=== PATIENT | female | born 1960 | race Caucasian/White ===

== ENCOUNTER 2018-08-28 10:04 | Inpatient (IN) | payer BC ==
--- NOTE | 2018-08-28 10:15 | EDM.PDOC ---
ED HPI GENERAL MEDICAL PROBLEM - General Stated Complaint: FELL VIA NORTH Time Seen by Provider: 08/28/18 10:04 Source of Information: Reports: Patient, EMS History Limitations: Reports: No Limitations - History of Present Illness INITIAL COMMENTS - FREE TEXT/NARRATIVE: 50-year-old female, usually healthy slipped last night and landed hard on her right hip on a hardwood floor. She was unable to get up and bear weight but with the help of her she she did get to bed. This morning she was unable to bear weight so an ambulance was called and she was brought in. She was given 100 g of fentanyl IV for pain in route. She still has significant right hip discomfort, pain with any range of motion and has obvious shortening of the right leg. She focuses her pain from the right groin to the right lateral hip. No other injury or complaints. No distal paresthesias or distal swelling. Onset: Sudden Duration: Hour(s): (About 12 hours ago) Location: Reports: Lower Extremity, Right Quality: Reports: Sharp, Stabbing Worsens with: Reports: Movement Associated Symptoms: Reports: No Other Symptoms - Related Data Allergies Allergy/AdvReac Type Severity Reaction Status Date / Time No Known Allergies Allergy Verified 08/28/18 10:16 Home Meds: Home Meds Anastrozole [Arimidex] 1 mg PO DAILY 08/28/18 [History] LORazepam 1 mg PO TID PRN 08/28/18 [History] Omeprazole 20 mg PO BID 08/28/18 [History] Sertraline [Zoloft] 100 mg PO DAILY 08/28/18 [History] Zolpidem [Ambien] 5 mg PO QPM 08/28/18 [History] Review of Systems - Review of Systems Review Of Systems: See Below Constitutional: Denies: Fever Respiratory: Denies: Shortness of Breath Cardiovascular: Denies: Chest Pain GI/Abdominal: Denies: Abdominal Pain Skin: Denies: Bruising Neurological: Denies: Paresthesia ED EXAM, GENERAL - Physical Exam Exam: See Below Exam Limited By: No Limitations General Appearance: Alert, Mild Distress (Looks very uncomfortable even while still) Respiratory/Chest: No Respiratory Distress GI/Abdominal: Soft, Non-Tender Extremities: Other (Right leg is shortened compared to the left, she has exquisite tenderness around the right proximal femur and right coronary to palpation and any passive range of motion. Excellent distal pulses of both feet) Neurological: Alert, Oriented Psychiatric: Anxious Skin Exam: Warm, Dry Course - Vital Signs Last Recorded V/S: Last Vital Signs Temp 97 F 08/28/18 12:25 Pulse 67 08/28/18 12:25 Resp 16 08/28/18 12:25 BP 130/99 H 08/28/18 12:25 Pulse Ox 94 L 08/28/18 13:00 - Orders/Labs/Meds Orders: Medication Orders Acetaminophen (Tylenol) 650 mg PO Q4H PRN PRN Reason: Pain (Mild 1-3)/fever Hydromorphone HCl (Dilaudid) 0.5 mg IVPUSH Q2H PRN PRN Reason: Pain Last Admin: 08/28/18 13:28 Dose: 0.5 mg Lactated Ringer's (Ringers, Lactated) 1,000 mls @ 125 mls/hr IV ASDIRECTED [facility] Last Admin: 08/28/18 13:32 Dose: 125 mls/hr Ibuprofen (Motrin) 600 mg PO Q6H PRN PRN Reason: Pain/Fever Lorazepam (Ativan) 0.5 mg PO Q4H PRN PRN Reason: Anxiety Non-Formulary Medication (Sertraline [Zoloft]) 100 mg PO DAILY [facility] Non-Formulary Medication (Omeprazole [Omeprazole]) 20 mg PO BID [facility] Non-Formulary Medication (Anastrozole [Arimidex]) 1 mg PO DAILY [facility] Ondansetron HCl (Zofran) 4 mg IV Q4H PRN PRN Reason: Nausea/Vomiting Last Admin: 08/28/18 13:21 Dose: 4 mg Pantoprazole Sodium (Protonix) 40 mg PO ACBREAKFAST [facility] Polyethylene Glycol (Miralax) 17 gm PO DAILY PRN PRN Reason: Constipation Potassium Chloride (Klor-Con M20) 40 meq PO ONETIME ONE Stop: 08/28/18 17:01 Senna/Docusate Sodium (Senna Plus) 1 tab PO BID [facility] Sodium Chloride (Saline Flush) 10 ml FLUSH ASDIRECTED PRN PRN Reason: Keep Vein Open Zolpidem Tartrate (Ambien) 5 mg PO QPM [facility] Labs: Laboratory Tests 08/28/18 08/28/18 08/28/18 Range/Units 10:33 10:33 10:33 WBC 5.9 (4.5-11.0) K/uL RBC 3.42 (3.30-5.50) M/uL Hgb 13.0 (12.0-15.0) g/dL Hct 38.0 (36.0-48.0) % MCV 111 H (80-98) fL MCH 38 H (27-31) pg MCHC 34 (32-36) % Plt Count 131 L (150-400) K/uL Neut % (Auto) 79 H (36-66) % Lymph % (Auto) 12 L (24-44) % [place] % (Auto) 9 H (2-6) % Eos % (Auto) 0 L (2-4) % Baso % (Auto) 1 (0-1) % PT 10.8 (9.5-12.0) sec INR 0.98 (0.80-1.20) Sodium 142 (140-148) mmol/L Potassium 3.5 L (3.6-5.2) mmol/L Chloride 105 (100-108) mmol/L Carbon Dioxide 22 (21-32) mmol/L Anion Gap 18.5 H (5.0-14.0) mmol/L BUN 10 (7-18) mg/dL Creatinine 0.6 (0.6-1.0) mg/dL Est Cr Clr Drug Dosing TNP Estimated GFR (MDRD) > 60 (>60) Glucose 117 H (74-106) mg/dL Calcium 8.9 (8.5-10.1) mg/dL Blood Type Gel Antibody Screen 08/28/18 Range/Units 10:45 WBC (4.5-11.0) K/uL RBC (3.30-5.50) M/uL Hgb (12.0-15.0) g/dL Hct (36.0-48.0) % MCV (80-98) fL MCH (27-31) pg MCHC (32-36) % Plt Count (150-400) K/uL Neut % (Auto) (36-66) % Lymph % (Auto) (24-44) % [place] % (Auto) (2-6) % Eos % (Auto) (2-4) % Baso % (Auto) (0-1) % PT (9.5-12.0) sec INR (0.80-1.20) Sodium (140-148) mmol/L Potassium (3.6-5.2) mmol/L Chloride (100-108) mmol/L Carbon Dioxide (21-32) mmol/L Anion Gap (5.0-14.0) mmol/L BUN (7-18) mg/dL Creatinine (0.6-1.0) mg/dL Est Cr Clr Drug Dosing Estimated GFR (MDRD) (>60) Glucose (74-106) mg/dL Calcium (8.5-10.1) mg/dL Blood Type O NEGATIVE Gel Antibody Screen Negative Meds: Medications Generic Name Dose Route Start Last Admin Trade Name Freq PRN Reason Stop Dose Admin Acetaminophen 650 mg 08/28/18 12:25 Tylenol PO Q4H PRN Pain (Mild 1-3)/fever Hydromorphone HCl 0.5 mg 08/28/18 12:25 08/28/18 13:28 Dilaudid IVPUSH 0.5 mg Q2H PRN Administration Pain Lactated Ringer's 1,000 mls @ 125 mls/hr 08/28/18 12:25 08/28/18 13:32 Ringers, Lactated IV 125 mls/hr ASDIRECTED ANDRES Administration Ibuprofen 600 mg 08/28/18 12:25 Motrin PO Q6H PRN Pain/Fever Lorazepam 0.5 mg 08/28/18 12:25 Ativan PO Q4H PRN Anxiety Non-Formulary Medication 100 mg 08/29/18 09:00 Sertraline [Zoloft] PO DAILY ANDRES Non-Formulary Medication 20 mg 08/28/18 21:00 Omeprazole [Omeprazole] PO BID [facility] Non-Formulary Medication 1 mg 08/29/18 09:00 Anastrozole [Arimidex] PO DAILY [facility] Ondansetron HCl 4 mg 08/28/18 12:25 08/28/18 13:21 Zofran IV 4 mg Q4H PRN Administration Nausea/Vomiting Pantoprazole Sodium 40 mg 08/28/18 13:30 Protonix PO ACBREAKFAST ANDRES Polyethylene Glycol 17 gm 08/28/18 12:25 Miralax PO DAILY PRN Constipation Potassium Chloride 40 meq 08/28/18 17:00 Klor-Con M20 PO 08/28/18 17:01 ONETIME ONE Senna/Docusate Sodium 1 tab 08/28/18 21:00 Senna Plus PO BID ANDRES Sodium Chloride 10 ml 08/28/18 12:25 Saline Flush FLUSH ASDIRECTED PRN Keep Vein Open Zolpidem Tartrate 5 mg 08/28/18 17:00 Ambien PO QPM AND[facility] Discontinued Medications Generic Name Dose Route Start Last Admin Trade Name Freq PRN Reason Stop Dose Admin Heparin Sodium (Porcine) 5,000 units 08/28/18 14:00 Heparin Sodium SUBCUT 08/28/18 14:01 Q8H ANDRES Hydromorphone HCl 0.5 mg 08/28/18 10:22 08/28/18 10:34 Dilaudid IVPUSH 08/28/18 10:23 0.5 mg ONETIME ONE Administration Hydromorphone HCl Confirm 08/28/18 10:24 Dilaudid Administered 08/28/18 10:25 Dose 0.5 mg .ROUTE .STK-MED ONE Hydromorphone HCl 0.5 mg 08/28/18 11:52 08/28/18 12:17 Dilaudid IVPUSH 08/28/18 11:53 0.5 mg ONETIME ONE Administration Potassium Chloride 40 meq 08/28/18 13:30 Klor-Con M20 PO 08/28/18 13:31 ONETIME ONE - Re-Assessments/Exams Free Text/Narrative Re-Assessment/Exam: 08/28/18 10:13 X-ray of the right hip and pelvis were obtained. 08/28/18 10:35 X-ray confirms a subcapsular proximally displaced femoral neck fracture. A second 0.5 mg of IV Dilaudid was given, and INR, CBC and BMP were obtained. 08/28/18 11:19 Labs were generally normal and noncontributory, she was not anemic. Dr. Laurent agreed to see the patient for surgical repair on Wednesday, Dr. Tucker of the hospitalist service was asked to admit the patient and prepare for surgery. Departure - Departure Time of Disposition: 13:21 Disposition: Admitted As Inpatient 66 Clinical Impression: Fracture of neck of femur, hip - Discharge Information
[2018-08-28] MEDS ORDERED: HYDROmorphone 0.5 MG/0.5 ML Syringe IVPUSH ONE ×2 (10:22→11:52)
[2018-08-28] MEDS ORDERED: HYDROmorphone 0.5 MG/0.5 ML Syringe ONE (10:24)
--- NOTE | 2018-08-28 11:58 | CRLCR ---
INDICATION: Fall. Right hip pain. TECHNIQUE: AP pelvis and cross-table lateral view of the right hip. COMPARISON: None. IMPRESSION: There is an acute fracture of the right femoral neck, subcapital region, with superior migration of the femoral shaft relative to the femoral head. Dictated by Santosh Bocanegra MD @ 08/28/2018 11:55:53 AM Dictated by: Santosh Bocanegra MD @ 08/28/2018 11:55:57 (Electronically Signed)
--- NOTE | 2018-08-28 12:23 | PCM.HP ---
H&P History of Present Illness - General Date of Service: 08/28/18 Admit Problem/Dx: Admission Diagnosis/Problem Admission Diagnosis/Problem Hip fracture requiring operative repair Source of Information: Patient, Family, Provider, RN Notes Reviewed History Limitations: Reports: No Limitations - History of Present Illness Initial Comments - Free Text/Narative: Ms. Taylor is a 58-year-old woman who is admitted through the emergency department with severe right hip pain secondary to hip fracture. Ms. Taylor was in her usual state of good health until she slept on the floor and fell last night landing on her right hip. Since then she is experienced severe pain in the hip. She was able to get into bed but was unable to get up this morning and was brought into the emergency department for further evaluation. X-ray shows evidence of a displaced fracture of the right femoral neck. Findings have been discussed with Dr. Laurent, plan is for surgical repair of the hip tomorrow. She denies any history of significant cardiac or pulmonary disease. She was found to have breast cancer last year and has completed surgery including a lumpectomy followed by radiation therapy. She is on long-term hormone suppressive therapy. To this point there has been no evidence of cancer recurrence. She denies recent symptoms of chest pain or pressure or shortness of breath and was fairly active up until the time of her fall. There is no history of adverse reaction to anesthesia and no family history of adverse reaction to anesthesia. Patient herself has not had a vein thrombosis, pulmonary emboli, or significant bleeding abnormalities. There is a family history of thrombosis and protein C deficiency. Patient is heterozygote for protein C. - Related Data Allergies/Adverse Reactions: Allergies Allergy/AdvReac Type Severity Reaction Status Date / Time No Known Allergies Allergy Verified 08/28/18 10:16 Home Medications: Home Meds Anastrozole [Arimidex] 08/28/18 [History] LORazepam 08/28/18 [History] Omeprazole 08/28/18 [History] Sertraline [Zoloft] 08/28/18 [History] Zolpidem [Ambien] 08/28/18 [History] Past Medical History Oncologic (Cancer) History: Reports: Breast - Past Surgical History Female Surgical History: Reports: Endometrial Ablation Oncologic Surgical History: Reports: Lumpectomy Social & Family History - Tobacco Use Smoking Status *Q: Never Smoker H&P Review of Systems - Review of Systems: Review Of Systems: See Below General: Reports: No Symptoms HEENT: Reports: No Symptoms Pulmonary: Reports: No Symptoms Cardiovascular: Reports: No Symptoms Gastrointestinal: Reports: Diarrhea (History of irritable bowel syndrome). Denies: Abdominal Pain, Black Stool, Bloody Stool, Constipation, Decreased Appetite, Difficulty Swallowing, Distension, Nausea, Vomiting Musculoskeletal: Reports: Joint Pain (Right hip) Skin: Reports: No Symptoms Psychiatric: Reports: Depression, Anxiety. Denies: Confusion, Agitation Neurological: Reports: No Symptoms Hematologic/Lymphatic: Reports: Other (No personal history of DVT or pulmonary emboli, family history of protein C deficiency). Denies: Anemia, Easy Bleeding , Easy Bruising Immunologic: Reports: No Symptoms Exam - Exam Exam: See Below - Vital Signs Vital Signs: Last Vital Signs Temp 95.5 F 08/28/18 10:31 Pulse 79 08/28/18 10:31 Resp 15 08/28/18 10:31 BP 142/94 H 08/28/18 10:31 Pulse Ox 96 08/28/18 10:31 Weight: 140 lb - Exam Quality Assessment: DVT Prophylaxis General: Alert, Oriented, Cooperative, Moderate Distress HEENT: Conjunctiva Clear, Hearing Intact, Mucosa Moist & [place], Normal Nasal Septum, Posterior Pharynx Clear, Pupils Equal Neck: Supple, Trachea Midline, +2 Carotid Pulse wo Bruit Lungs: Clear to Auscultation Cardiovascular: Regular Rate, Regular Rhythm, Normal S1, Normal S2. No: Systolic Murmur, Diastolic Murmur GI/Abdominal Exam: Soft, Non-Tender, No Organomegaly, No Distention Extremities: No Pedal Edema, Other (Right hip pain) Skin: Warm, Dry, Intact Neurological: Cranial Nerves Intact, Strength Equal Bilateral, Normal Speech, Normal Tone, Sensation Intact. No: Focal Deficit Neuro Extensive - Mental Status: Alert, Oriented x3, Normal Mood/Affect, Normal Cognition, Memory Intact - Patient Data Lab Results Last 24 hrs: Laboratory Results - last 24 hr 08/28/18 08/28/18 08/28/18 Range/Units 10:33 10:33 10:33 WBC 5.9 (4.5-11.0) K/uL RBC 3.42 (3.30-5.50) M/uL Hgb 13.0 (12.0-15.0) g/dL Hct 38.0 (36.0-48.0) % MCV 111 H (80-98) fL MCH 38 H (27-31) pg MCHC 34 (32-36) % Plt Count 131 L (150-400) K/uL Neut % (Auto) 79 H (36-66) % Lymph % (Auto) 12 L (24-44) % [place] % (Auto) 9 H (2-6) % Eos % (Auto) 0 L (2-4) % Baso % (Auto) 1 (0-1) % PT 10.8 (9.5-12.0) sec INR 0.98 (0.80-1.20) Sodium 142 (140-148) mmol/L Potassium 3.5 L (3.6-5.2) mmol/L Chloride 105 (100-108) mmol/L Carbon Dioxide 22 (21-32) mmol/L Anion Gap 18.5 H (5.0-14.0) mmol/L BUN 10 (7-18) mg/dL Creatinine 0.6 (0.6-1.0) mg/dL Est Cr Clr Drug Dosing TNP Estimated GFR (MDRD) > 60 (>60) Glucose 117 H (74-106) mg/dL Calcium 8.9 (8.5-10.1) mg/dL Result Diagrams: 08/28/18 10:33 08/28/18 10:33 *Q Meaningful Use (ADM) - VTE Risk Assess *Q Each Risk Factor Represents 1 Point: Age 41 - 59 years Total Score 1 Point Risk Factors: 1 Each Risk Factor Represents 2 Points: Malignancy (present or previous) Total Score 2 Point Risk Factors: 2 Each Risk Factor Represents 3 Points: Family history of thrombosis, Other congenital or acquired thrombophilia Total Score 3 Point Risk Factors: 6 Each Risk Factor Represents 5 Points: Hip, Pelvis or Leg Fracture, Less than 1 month Total Score 5 Point Risk Factors: 5 Venous Thromboembolism Risk Factor Score *Q: 14 Problem List Initiated/Reviewed/Updated: Yes Orders Last 24hrs: Active Orders 24 hr Category Date Time Status Patient Status Manage Transfer [TRANSFER] Routine ADT 08/28/18 11:09 Active Insert Gupta Catheter [Insert Urinary Catheter] [OM.PC] Care 08/28/18 11:30 Ordered Q24H Urinary Catheter Assessment [RC] ASDIRECTED Care 08/28/18 11:17 Active Resuscitation Status Routine Resus Stat 08/28/18 11:12 Ordered Assessment/Plan Comment:: ASSESSMENT AND PLAN RIGHT HIP FRACTURE-she fell at home last night and is experienced severe right hip pain since then. X-ray obtained in the emergency department shows evidence of a right femoral neck fracture. History of breast cancer, no current evidence of active disease. She is otherwise healthy with no significant cardiac or pulmonary disease, cleared for surgery with anesthesia. She has a known diagnosis of protein C deficiency, no previous history of DVT or pulmonary emboli -Orthopedic consult Dr. Laurent -IV fluids for hydration -Pain and nausea medication as needed -Nothing by mouth after midnight -Type and screen PROTEIN C DEFICIENCY-no personal history of DVT or pulmonary emboli. There is a family history of deep vein thrombosis and PEs, family history of protein C deficiency. Patient has been tested and found to have protein C deficiency. With protein C deficiency and her hip fracture she is at high risk for deep vein thrombosis. -Sequential compression devices -Subcutaneous heparin today, stop tonight pending surgery tomorrow -Aggressive postoperative DVT prophylaxis BREAST CARCINOMA-status post lumpectomy and radiation therapy, currently no evidence of active disease -Continue outpatient therapy HYPOKALEMIA -Oral potassium replacement -Reassess potassium level in a.m. DEPRESSION/ANXIETY -Continue outpatient medical management -Lorazepam as needed for anxiety MAINTENANCE ISSUES -DVT prophylaxis; as above -GI prophylaxis; continue outpatient PPI therapy -Gupta catheter; placed for pre-, post operative management -Nutrition; regular diet, nothing by mouth after midnight -Nicotine dependence; not required CODE STATUS-FULL CODE ADMISSION STATUS-patient will be admitted to inpatient status, expect at least a 2 night hospital stay for evaluation and management of problems as outlined above. At the time of this admission I do not reasonably expected evaluation and management of this problem will require more than a 96 hour hospital stay. DISPOSITION-anticipate discharge to home after the hospital stay. PRIMARY CARE PROVIDER-patient lives in [place] and receives her primary care there
[2018-08-28] MEDS ORDERED: Polyethylene Glycol 3350 Powder 17 GM Packet PO PRN (12:25)
[2018-08-28] MEDS ORDERED: Sodium Chloride 0.9% 10 ML Syringe FLUSH PRN (12:25)
[2018-08-28] MEDS: Ondansetron 4 MG/2 ML SDV IV PRN ×2 (13:21→18:25)
[2018-08-28] MEDS: HYDROmorphone 0.5 MG/0.5 ML Syringe IVPUSH PRN ×5 (13:28→22:57)
[2018-08-28] MEDS ORDERED: Pantoprazole 40 MG Tab.CR PO SCH (13:30)
[2018-08-28] MEDS ORDERED: Potassium Chloride 20 MEQ Tab.ER PO ONE ×2 (13:30→17:00)
[2018-08-28] MEDS: Lactated Ringers 1,000 ML IV SCH ×2 (13:32→21:57)
[2018-08-28] MEDS ORDERED: Heparin Sodium 5,000 Units/ML Vial SUBCUT SCH (14:00)
[2018-08-28] MEDS: OMEPRAZOLE 20MG CAP (PTOM) PO SCH (18:42)
[2018-08-28] MEDS: Ibuprofen 600 MG Tab PO PRN (19:24)
[2018-08-28] MEDS: Zolpidem 5 MG Tab PO SCH (20:48)
[2018-08-28] MEDS ORDERED: Non-Formulary Medication 1 Each (Omeprazole [Omeprazole] 20 MG) PO SCH (21:00)
[2018-08-28] MEDS: Acetaminophen 325 MG Tab PO PRN (22:58)
[2018-08-29] MEDS: Ibuprofen 600 MG Tab PO PRN ×2 (02:01→22:53)
[2018-08-29] MEDS: HYDROmorphone 1 MG/ML Syringe IVPUSH PRN ×6 (02:01→22:53)
[2018-08-29] MEDS: LORazepam 0.5 MG Tab PO PRN (02:55)
[2018-08-29] MEDS: Lactated Ringers 1,000 ML IV SCH ×2 (06:04→16:00)
[2018-08-29] MEDS ORDERED: ceFAZolin 2 GM in Premix Bag 1 BAG IV ONE (08:15)
[2018-08-29] MEDS ORDERED: Povidone-Iodine 10% Soln 118.25 ML Bottle ONE (08:22)
[2018-08-29] MEDS ORDERED: Midazolam 1 MG/ML 2 ML SDV ONE (08:38)
[2018-08-29] MEDS ORDERED: fentaNYL 100 MCG/2 ML SDV ONE (08:38)
[2018-08-29] MEDS ORDERED: Propofol 200 MG/20 ML SDV ONE (08:39)
[2018-08-29] MEDS ORDERED: ANASTROZOLE 1 MG PO SCH (09:00)
[2018-08-29] MEDS ORDERED: Non-Formulary Medication 1 Each (Sertraline [Zoloft] 100 MG) PO SCH (09:00)
[2018-08-29] MEDS ORDERED: HYDROmorphone 1 MG/ML Syringe IVPUSH ONE (09:12)
[2018-08-29] MEDS ORDERED: Lactated Ringers 1,000 ML ONE (11:59)
[2018-08-29] MEDS ORDERED: ePHEDrine 50 MG/ML SDV ONE (12:03)
[2018-08-29] MEDS: OMEPRAZOLE 20MG CAP (PTOM) PO SCH ×2 (13:20→18:54)
[2018-08-29] MEDS: Sertraline 50 MG Tab PO SCH (14:11)
[2018-08-29] MEDS: ANASTROZOLE 1 MG PO SCH (14:11)
--- NOTE | 2018-08-29 14:34 | PCM.PN ---
- General Info Date of Service: 08/29/18 Subjective Update: There were no acute events overnight. Patient had an uneventful right hip arthroplasty today. No pain in the right hip at this time. No numbness or tingling in the right leg. She is able to wiggle her toes. She feels a little short of breath at this time and is on supplemental oxygen. Vital signs are stable. Functional Status: Reports: Pain Controlled - Review of Systems General: Denies: Fever - Patient Data Vitals - Most Recent: Last Vital Signs Temp 35.0 C L 08/29/18 14:02 Pulse 98 08/29/18 14:13 Resp 16 08/29/18 14:13 BP 90/72 08/29/18 14:13 Pulse Ox 84 L 08/29/18 14:13 Weight - Most Recent: 63.503 kg I&O - Last 24 Hours: Intake & Output 08/28/18 08/29/18 08/29/18 22:59 06:59 14:59 Intake Total 597 1952 50 Output Total 340 400 175 Balance 257 1552 -125 Lab Results Last 24 Hours: Laboratory Results - last 24 hr 08/29/18 08/29/18 Range/Units 06:02 06:02 WBC 4.5 (4.5-11.0) K/uL RBC 2.98 L (3.30-5.50) M/uL Hgb 11.4 L (12.0-15.0) g/dL Hct 34.6 L (36.0-48.0) % MCV 116 H (80-98) fL MCH 38 H (27-31) pg MCHC 33 (32-36) % Plt Count 106 L (150-400) K/uL Neut % (Auto) 65 (36-66) % Lymph % (Auto) 18 L (24-44) % [place] % (Auto) 16 H (2-6) % Eos % (Auto) 0 L (2-4) % Baso % (Auto) 0 (0-1) % Sodium 140 (140-148) mmol/L Potassium 4.8 (3.6-5.2) mmol/L Chloride 105 (100-108) mmol/L Carbon Dioxide 28 (21-32) mmol/L Anion Gap 6.6 (5.0-14.0) mmol/L BUN 11 (7-18) mg/dL Creatinine 0.5 L (0.6-1.0) mg/dL Est Cr Clr Drug Dosing 119.26 mL/min Estimated GFR (MDRD) > 60 (>60) Glucose 86 (74-106) mg/dL Calcium 8.8 (8.5-10.1) mg/dL Med Orders - Current: Current Medications Acetaminophen (Tylenol) 650 mg PO Q4H PRN PRN Reason: Pain (Mild 1-3)/fever Last Admin: 08/28/18 22:58 Dose: 650 mg Diphenhydramine HCl (Benadryl) 25 mg PO Q4H PRN PRN Reason: Itching Hydromorphone HCl (Dilaudid) 1 mg IVPUSH Q2H PRN PRN Reason: Pain Last Admin: 08/29/18 10:26 Dose: 1 mg Lactated Ringer's (Ringers, Lactated) 1,000 mls @ 125 mls/hr IV ASDIRECTED [facility] Last Admin: 08/29/18 06:04 Dose: 125 mls/hr Cefazolin Sodium/Dextrose 1 gm (/ Premix) 50 mls @ 100 mls/hr IV Q8H [facility] Stop: 08/30/18 08:29 Ibuprofen (Motrin) 600 mg PO Q6H PRN PRN Reason: Pain/Fever Last Admin: 08/29/18 02:01 Dose: 600 mg Lorazepam (Ativan) 0.5 mg PO Q4H PRN PRN Reason: Anxiety Last Admin: 08/29/18 02:55 Dose: 0.5 mg Ondansetron HCl (Zofran) 4 mg IV Q4H PRN PRN Reason: Nausea/Vomiting Last Admin: 08/28/18 18:25 Dose: 4 mg Oxycodone/Acetaminophen (Percocet 325-5 Mg) 0 tab PO Q4H PRN PRN Reason: Pain (severe 7-10) Omeprazole 20mg Cap ((Ptom)) 0 each PO BIDAC [facility] Last Admin: 08/29/18 13:20 Dose: Not Given Anastrolzole 1mg Tab ((Ptom)) 1 each PO DAILY [facility] Last Admin: 08/29/18 14:11 Dose: 1 each Polyethylene Glycol (Miralax) 17 gm PO DAILY PRN PRN Reason: Constipation Senna/Docusate Sodium (Senna Plus) 1 tab PO BID [facility] Last Admin: 08/29/18 13:20 Dose: Not Given Sertraline HCl (Zoloft) 100 mg PO DAILY [facility] Last Admin: 08/29/18 14:11 Dose: 100 mg Sodium Chloride (Saline Flush) 10 ml FLUSH ASDIRECTED PRN PRN Reason: Keep Vein Open Zolpidem Tartrate (Ambien) 5 mg PO BEDTIME [facility] Last Admin: 08/28/18 20:48 Dose: 5 mg Discontinued Medications Bandage/Support Products ( Nasal Wildlife Refuge Manager) 1 applic NASBOTH ONETIME ONE Stop: 08/29/18 14:21 Ephedrine Sulfate (Ephedrine Sulfate) Confirm Administered Dose 50 mg .ROUTE .STK-MED ONE Stop: 08/29/18 12:04 Fentanyl (Sublimaze) Confirm Administered Dose 100 mcg .ROUTE .STK-MED ONE Stop: 08/29/18 08:39 Heparin Sodium (Porcine) (Heparin Sodium) 5,000 units SUBCUT Q8H [facility] Stop: 08/28/18 14:01 Last Admin: 08/28/18 18:41 Dose: 5,000 units Hydromorphone HCl (Dilaudid) 0.5 mg IVPUSH ONETIME ONE Stop: 08/28/18 10:23 Last Admin: 08/28/18 10:34 Dose: 0.5 mg Hydromorphone HCl (Dilaudid) Confirm Administered Dose 0.5 mg .ROUTE .STK-MED ONE Stop: 08/28/18 10:25 Last Admin: 08/28/18 14:47 Dose: Not Given Hydromorphone HCl (Dilaudid) 0.5 mg IVPUSH ONETIME ONE Stop: 08/28/18 11:53 Last Admin: 08/28/18 12:17 Dose: 0.5 mg Hydromorphone HCl (Dilaudid) 0.5 mg IVPUSH Q2H PRN PRN Reason: Pain Last Admin: 08/28/18 22:57 Dose: 0.5 mg Hydromorphone HCl (Dilaudid) 1 mg IVPUSH ONETIME ONE Stop: 08/29/18 09:13 Last Admin: 08/29/18 09:21 Dose: 1 mg Cefazolin Sodium/Dextrose 2 gm (/ Premix) 50 mls @ 100 mls/hr IV ONETIME ONE Stop: 08/29/18 08:44 Last Admin: 08/29/18 09:09 Dose: 100 mls/hr Lactated Ringer's (Ringers, Lactated) Confirm Administered Dose 1,000 mls @ as directed .ROUTE .STK-MED ONE Stop: 08/29/18 12:00 Midazolam HCl (Versed 1 Mg/Ml) Confirm Administered Dose 2 mg .ROUTE .STK-MED ONE Stop: 08/29/18 08:39 Pantoprazole Sodium (Protonix) 40 mg PO ACBREAKFAST [facility] Last Admin: 08/28/18 15:55 Dose: Not Given Potassium Chloride (Klor-Con M20) 40 meq PO ONETIME ONE Stop: 08/28/18 13:31 Last Admin: 08/28/18 15:51 Dose: 40 meq Potassium Chloride (Klor-Con M20) 40 meq PO ONETIME ONE Stop: 08/28/18 17:01 Last Admin: 08/28/18 19:16 Dose: 40 meq Povidone Iodine (Betadine 10% Soln) Confirm Administered Dose 1 ml .ROUTE .STK- MED ONE Stop: 08/29/18 08:23 Propofol (Diprivan 20 Ml) Confirm Administered Dose 200 mg .ROUTE .STK-MED ONE Stop: 08/29/18 08:40 - Exam Quality Assessment: Supplemental Oxygen General: Alert, Oriented, Cooperative, No Acute Distress Lungs: Clear to Auscultation, Normal Respiratory Effort Cardiovascular: Regular Rate, Regular Rhythm GI/Abdominal Exam: Soft, No Distention Extremities: No Pedal Edema. No: Increased Warmth Skin: Warm, Dry Wound/Incisions: Dressing Dry and Intact Psy/Mental Status: Alert, Normal Affect - Problem List Review Problem List Initiated/Reviewed/Updated: Yes - My Orders Last 24 Hours: My Active Orders 08/29/18 14:32 diphenhydrAMINE [Benadryl] 25 mg PO Q4H PRN 08/30/18 05:00 CBC W/O DIFF,HEMOGRAM [HEME] Timed (1) - Plan Plan:: ASSESSMENT AND PLAN RIGHT HIP FRACTURE - secondary to trauma, status post right hip arthroplasty on 08/29. Pain well-controlled at this time. -Orthopedic consult Dr. Laurent -IV fluids for hydration -Pain and nausea medication as needed -Orthopedic follow-up as indicated -Physical therapy PROTEIN C DEFICIENCY - no personal history of DVT or pulmonary emboli. There is a family history of deep vein thrombosis and PEs, family history of protein C deficiency. Patient has been tested and found to have protein C deficiency. With protein C deficiency and her hip fracture she is at high risk for deep vein thrombosis. -Sequential compression devices -Mechanical today -Aggressive postoperative DVT prophylaxis starting tomorrow BREAST CARCINOMA - status post lumpectomy and radiation therapy, currently no evidence of active disease -Continue outpatient therapy HYPOKALEMIA - improved with replacement. -potassium level in a.m. DEPRESSION/ANXIETY -Continue outpatient medical management -Lorazepam as needed for anxiety MAINTENANCE ISSUES -DVT prophylaxis; as above -GI prophylaxis; continue outpatient PPI therapy -Gupta catheter; placed for pre-, post operative management -Nutrition; regular diet DISPOSITION - anticipate discharge to home after the hospital stay. Rob Atkinson M.D.
[2018-08-29] MEDS: Nozin Nasal Sanitizer NASBOTH ONE ×2 (14:37→16:02)
[2018-08-29] MEDS: Acetaminophen 325 MG Tab PO PRN (14:44)
[2018-08-29] MEDS: diphenhydrAMINE 25 MG Cap PO PRN ×2 (14:44→21:37)
--- NOTE | 2018-08-29 14:58 | CR ---
Hip Min 1V Rt CLINICAL HISTORY: Postop FINDINGS: Patient is status post right hip hemiarthroplasty. Components appear well seated. IMPRESSION: Status post recent right hip hemiarthroplasty
[2018-08-29] MEDS: ceFAZolin 1 GM in Premix Bag 1 BAG IV SCH (16:06)
[2018-08-29] MEDS ORDERED: Sodium Chloride 0.9% 500 ML IV SCH (16:15)
[2018-08-29] MEDS: Acetaminophen/oxyCODONE 325-5 MG Tab PO PRN ×2 (16:21→21:28)
[2018-08-29] MEDS ORDERED: Sodium Chloride 0.9% 500 ML IV ONE (20:48)
[2018-08-29] MEDS: Zolpidem 5 MG Tab PO SCH (21:28)
[2018-08-29] MEDS: Nozin Nasal Sanitizer NASBOTH SCH (22:46)
[2018-08-30] MEDS: ceFAZolin 1 GM in Premix Bag 1 BAG IV SCH ×2 (00:47→07:24)
[2018-08-30] MEDS: Acetaminophen/oxyCODONE 325-5 MG Tab PO PRN ×5 (02:10→20:55)
[2018-08-30] MEDS: Lactated Ringers 1,000 ML IV SCH ×2 (02:11→10:38)
[2018-08-30] MEDS: LORazepam 0.5 MG Tab PO PRN (03:48)
[2018-08-30] MEDS: OMEPRAZOLE 20MG CAP (PTOM) PO SCH ×2 (07:26→16:13)
[2018-08-30] MEDS: Sertraline 50 MG Tab PO SCH (09:12)
[2018-08-30] MEDS: ANASTROZOLE 1 MG PO SCH (09:12)
[2018-08-30] MEDS: Nozin Nasal Sanitizer NASBOTH SCH ×2 (09:12→21:38)
[2018-08-30] MEDS: Ibuprofen 600 MG Tab PO PRN ×2 (10:47→19:09)
--- NOTE | 2018-08-30 11:25 | PCM.CONS ---
H&P History of Present Illness - General Date of Service: 08/29/18 Admit Problem/Dx: Admission Diagnosis/Problem Admission Diagnosis/Problem Hip fracture requiring operative repair Source of Information: Patient, Provider History Limitations: Reports: No Limitations - History of Present Illness Initial Comments - Free Text/Narative: 58 year old female with history of a fall at home. Was unable to weight bear on her right leg after the fall but was able to get back into be with the help of her . Eventually presented to the ED and was found to have a displaced femoral neck fracture of the right hip. She was admitted for treatment of the fracture. Evaluated by Hospitalist and cleared for surgery. Does have a history of Breast CA and Protein C Deficiency. Onset of Symptoms: Reports: Sudden Location: Reports: Lower Extremity, Right Quality: Reports: Sharp, Stabbing Severity: Severe Improves with: Reports: Rest Worsens with: Reports: Movement Associated Symptoms: Reports: No Other Symptoms Right Hip Pain Score (Numeric/FACES): 8 - Related Data Allergies/Adverse Reactions: Allergies Allergy/AdvReac Type Severity Reaction Status Date / Time No Known Allergies Allergy Verified 08/28/18 10:16 Home Medications: Home Meds Anastrozole [Arimidex] 1 mg PO DAILY 08/28/18 [History] LORazepam 1 mg PO TID PRN 08/28/18 [History] Omeprazole 20 mg PO BID 08/28/18 [History] Sertraline [Zoloft] 100 mg PO DAILY 08/28/18 [History] Zolpidem [Ambien] 5 mg PO QPM 08/28/18 [History] Past Medical History Cardiovascular History: Reports: Aneurysm Other Cardiovascular History: Ascending aortic aneurysm, small enough they are monitoring it BLENDER History: Reports: Endometrial Ablation Musculoskeletal History: Reports: Osteoporosis Psychiatric History: Reports: Anxiety, Depression Other Endocrine/Metabolic History: Protein C deficiency Other Hematologic History: protein c deficiency Oncologic (Cancer) History: Reports: Breast - Past Surgical History Female Surgical History: Reports: Endometrial Ablation Oncologic Surgical History: Reports: Lumpectomy Social & Family History - Family History Family Medical History: Noncontributory - Tobacco Use Smoking Status *Q: Never Smoker Used Tobacco, but Quit: No Second Hand Smoke Exposure: No - Caffeine Use Caffeine Use: Reports: None - Alcohol Use Days Per Week of Alcohol Use: 5 Number of Drinks Per Day: 2 Total Drinks Per Week: 10 Date of Last Drink: 08/27/18 Time of Last Drink: 19:00 - Recreational Drug Use Recreational Drug Use: No H&P Review of Systems - Review of Systems: Review Of Systems: ROS reveals no pertinent complaints other than HPI. Exam - Exam Exam: See Below - Vital Signs Vital Signs: Last Vital Signs Temp 37.1 C 08/30/18 10:40 Pulse 76 08/30/18 10:40 Resp 16 08/30/18 10:40 BP 102/72 08/30/18 10:40 Pulse Ox 99 08/30/18 10:40 Weight: 63.503 kg - Exam General: Alert, Oriented, 4 HEENT: PERRLA, Hearing Intact, Mucosa Moist & [place], Nares Patent, Normal Nasal Septum, Posterior Pharynx Clear, Conjunctiva Clear, EOMI, EACs Clear, TMs Clear Neck: Supple, Trachea Midline, 2 Extremities: Leg Pain, Other (Pain with log roll and motion of right leg, right leg shorter than left) Peripheral Pulses: 2+: Dorsalis Pedis (L), Dorsalis Pedis (R) Skin: Warm, Dry, Intact Neurological: Cranial Nerves Intact, Reflexes Equal Bilateral Neuro Extensive - Mental Status: Alert, Oriented x3, Normal Mood/Affect, Normal Cognition Psychiatric: Alert, Normal Affect, Normal Mood - Patient Data Lab Results Last 24 hrs: Laboratory Results - last 24 hr 08/30/18 Range/Units 05:00 WBC 3.7 L (4.5-11.0) K/uL RBC 2.47 L (3.30-5.50) M/uL Hgb 9.1 L D (12.0-15.0) g/dL Hct 28.9 L (36.0-48.0) % MCV 117 H (80-98) fL MCH 37 H (27-31) pg MCHC 32 (32-36) % Plt Count 98 L (150-400) K/uL Result Diagrams: 08/31/18 05:26 08/31/18 05:26 Consult PN Assessment/Plan (1) Fracture of neck of femur, hip SNOMED Code(s): 1568278 Code(s): S72.009A - FRACTURE OF UNSP PART OF NECK OF UNSP FEMUR, INIT Current Visit: Yes Problem List Initiated/Reviewed/Updated: Yes My Orders Last 24 Hours: My Active Orders 08/29/18 13:01 Consult to Physical Therapy [PT Evaluation and Treatment] [CONS] Routine Weight bearing status [OM.PC] Routine 08/29/18 13:02 Consult to Occupational Therapy [OT Evaluation and Treatment] [CONS] Routine 08/29/18 13:03 Acetaminophen/oxyCODONE [Percocet 325-5 MG] See Dose Instructions PO Q4H PRN 08/29/18 13:05 Ambulate [RC] PER UNIT ROUTINE 08/29/18 21:00 Nozin [ Nasal Rubber Boots And Shoes Repairer] 1 applic NASBOTH BID 08/29/18 Dinner Regular Diet [DIET] Plan: X-rays of hip are reviewed. Imp: Displaced subcapital fracture right hip Recommend bipolar hemiarthroplasty of right hip. Discussed pros and cons and hemiarthroplasty vs total hip with pt and . Risks,benefits and potential complications discussed. Plan hemiarthroplasty, patient is in agreement with the plan.
--- NOTE | 2018-08-30 12:02 | PCM.PN ---
- General Info Date of Service: 08/30/18 Subjective Update: Overnight the patient had difficulty with low blood pressures on 2 occasions. Both of these episodes responded to fluid challenges. Pain is well-controlled today. She's been able to ambulate in the barry twice. She has not had any fevers. She was a little confused this morning after receiving Ambien and Benadryl last night. Confusion has resolved. No complaints of nausea. Shortness of breath is at baseline. Functional Status: Reports: Pain Controlled, Tolerating Diet, Ambulating - Review of Systems General: Denies: Fever Neurological: Reports: Confusion - Patient Data Vitals - Most Recent: Last Vital Signs Temp 37.1 C 08/30/18 10:40 Pulse 76 08/30/18 10:40 Resp 16 08/30/18 10:40 BP 102/72 08/30/18 10:40 Pulse Ox 99 08/30/18 10:40 Weight - Most Recent: 63.503 kg I&O - Last 24 Hours: Intake & Output 08/29/18 08/30/18 08/30/18 22:59 06:59 14:59 Intake Total 1989 191 170 Output Total 136 100 150 Balance 1854 1817 20 Lab Results Last 24 Hours: Laboratory Results - last 24 hr 08/30/18 Range/Units 05:00 WBC 3.7 L (4.5-11.0) K/uL RBC 2.47 L (3.30-5.50) M/uL Hgb 9.1 L D (12.0-15.0) g/dL Hct 28.9 L (36.0-48.0) % MCV 117 H (80-98) fL MCH 37 H (27-31) pg MCHC 32 (32-36) % Plt Count 98 L (150-400) K/uL Med Orders - Current: Current Medications Acetaminophen (Tylenol) 650 mg PO Q4H PRN PRN Reason: Pain (Mild 1-3)/fever Last Admin: 08/29/18 14:44 Dose: 650 mg Bandage/Support Products ( Nasal Manager Critical Care) 1 applic NASBOTH BID [facility] Stop: 09/05/18 21:01 Last Admin: 08/30/18 09:12 Dose: 1 applic Diphenhydramine HCl (Benadryl) 25 mg PO Q4H PRN PRN Reason: Itching Last Admin: 08/29/18 21:37 Dose: 25 mg Hydromorphone HCl (Dilaudid) 1 mg IVPUSH Q2H PRN PRN Reason: Pain Last Admin: 08/29/18 22:53 Dose: 1 mg Ibuprofen (Motrin) 600 mg PO Q6H PRN PRN Reason: Pain/Fever Last Admin: 08/30/18 10:47 Dose: 600 mg Lorazepam (Ativan) 0.5 mg PO Q4H PRN PRN Reason: Anxiety Last Admin: 08/30/18 03:48 Dose: 0.5 mg Ondansetron HCl (Zofran) 4 mg IV Q4H PRN PRN Reason: Nausea/Vomiting Last Admin: 08/28/18 18:25 Dose: 4 mg Oxycodone/Acetaminophen (Percocet 325-5 Mg) 0 tab PO Q4H PRN PRN Reason: Pain (severe 7-10) Last Admin: 08/30/18 07:25 Dose: 2 tab Omeprazole 20mg Cap ((Ptom)) 0 each PO BIDAC [facility] Last Admin: 08/30/18 07:26 Dose: 1 each Anastrolzole 1mg Tab ((Ptom)) 1 each PO DAILY [facility] Last Admin: 08/30/18 09:12 Dose: 1 each Polyethylene Glycol (Miralax) 17 gm PO DAILY PRN PRN Reason: Constipation Senna/Docusate Sodium (Senna Plus) 1 tab PO BID [facility] Last Admin: 08/30/18 09:12 Dose: 1 tab Sertraline HCl (Zoloft) 100 mg PO DAILY [facility] Last Admin: 08/30/18 09:12 Dose: 100 mg Sodium Chloride (Saline Flush) 10 ml FLUSH ASDIRECTED PRN PRN Reason: Keep Vein Open Zolpidem Tartrate (Ambien) 5 mg PO BEDTIME [facility] Last Admin: 08/29/18 21:28 Dose: 5 mg Discontinued Medications Bandage/Support Products ( Nasal Manager Critical Care) 1 applic NASBOTH ONETIME ONE Stop: 08/29/18 14:21 Last Admin: 08/29/18 16:02 Dose: Not Given Ephedrine Sulfate (Ephedrine Sulfate) Confirm Administered Dose 50 mg .ROUTE .STK-MED ONE Stop: 08/29/18 12:04 Fentanyl (Sublimaze) Confirm Administered Dose 100 mcg .ROUTE .STK-MED ONE Stop: 08/29/18 08:39 Heparin Sodium (Porcine) (Heparin Sodium) 5,000 units SUBCUT Q8H [facility] Stop: 08/28/18 14:01 Last Admin: 08/28/18 18:41 Dose: 5,000 units Hydromorphone HCl (Dilaudid) 0.5 mg IVPUSH ONETIME ONE Stop: 08/28/18 10:23 Last Admin: 08/28/18 10:34 Dose: 0.5 mg Hydromorphone HCl (Dilaudid) Confirm Administered Dose 0.5 mg .ROUTE .STK-MED ONE Stop: 08/28/18 10:25 Last Admin: 08/28/18 14:47 Dose: Not Given Hydromorphone HCl (Dilaudid) 0.5 mg IVPUSH ONETIME ONE Stop: 08/28/18 11:53 Last Admin: 08/28/18 12:17 Dose: 0.5 mg Hydromorphone HCl (Dilaudid) 0.5 mg IVPUSH Q2H PRN PRN Reason: Pain Last Admin: 08/28/18 22:57 Dose: 0.5 mg Hydromorphone HCl (Dilaudid) 1 mg IVPUSH ONETIME ONE Stop: 08/29/18 09:13 Last Admin: 08/29/18 09:21 Dose: 1 mg Lactated Ringer's (Ringers, Lactated) 1,000 mls @ 125 mls/hr IV ASDIRECTED [facility] Last Admin: 08/30/18 10:38 Dose: 125 mls/hr Cefazolin Sodium/Dextrose 2 gm (/ Premix) 50 mls @ 100 mls/hr IV ONETIME ONE Stop: 08/29/18 08:44 Last Admin: 08/29/18 09:09 Dose: 100 mls/hr Lactated Ringer's (Ringers, Lactated) Confirm Administered Dose 1,000 mls @ as directed .ROUTE .STK-MED ONE Stop: 08/29/18 12:00 Cefazolin Sodium/Dextrose 1 gm (/ Premix) 50 mls @ 100 mls/hr IV Q8H [facility] Stop: 08/30/18 08:29 Last Admin: 08/30/18 07:24 Dose: 100 mls/hr Sodium Chloride (Normal Saline) 500 mls @ 500 mls/hr IV ASDIRECTED [facility] Stop: 08/29/18 17:16 Last Admin: 08/29/18 16:12 Dose: 500 mls/hr Sodium Chloride (Normal Saline) 500 mls @ 500 mls/hr IV .BOLUS ONE Stop: 08/29/18 21:47 Last Admin: 08/29/18 21:14 Dose: 500 mls/hr Midazolam HCl (Versed 1 Mg/Ml) Confirm Administered Dose 2 mg .ROUTE .STK-MED ONE Stop: 08/29/18 08:39 Pantoprazole Sodium (Protonix) 40 mg PO ACBREAKFAST [facility] Last Admin: 08/28/18 15:55 Dose: Not Given Potassium Chloride (Klor-Con M20) 40 meq PO ONETIME ONE Stop: 08/28/18 13:31 Last Admin: 08/28/18 15:51 Dose: 40 meq Potassium Chloride (Klor-Con M20) 40 meq PO ONETIME ONE Stop: 08/28/18 17:01 Last Admin: 08/28/18 19:16 Dose: 40 meq Povidone Iodine (Betadine 10% Soln) Confirm Administered Dose 1 ml .ROUTE .STK- MED ONE Stop: 08/29/18 08:23 Propofol (Diprivan 20 Ml) Confirm Administered Dose 200 mg .ROUTE .STK-MED ONE Stop: 08/29/18 08:40 - Exam Quality Assessment: No: Supplemental Oxygen General: Alert, Oriented, Cooperative, No Acute Distress Lungs: Clear to Auscultation, Normal Respiratory Effort Cardiovascular: Regular Rate, Regular Rhythm GI/Abdominal Exam: Soft, No Distention Extremities: No Pedal Edema Skin: Warm, Dry Wound/Incisions: Dressing Dry and Intact Psy/Mental Status: Alert, Normal Affect - Problem List Review Problem List Initiated/Reviewed/Updated: Yes - My Orders Last 24 Hours: My Active Orders 08/29/18 14:32 diphenhydrAMINE [Benadryl] 25 mg PO Q4H PRN 08/30/18 12:00 Convert IV to Saline Lock [OM.PC] Routine 08/31/18 05:00 BASIC METABOLIC PANEL,BMP [CHEM] Timed CBC W/O DIFF,HEMOGRAM [HEME] Timed (1) - Plan Plan:: ASSESSMENT AND PLAN RIGHT HIP FRACTURE - secondary to trauma, status post right hip arthroplasty on 08/29. Pain well-controlled at this time. Ambulating some and working with physical therapy. -Orthopedic consult Dr. Laurent -Saline lock IV -Pain and nausea medication as needed -Orthopedic follow-up as indicated -Physical therapy PROTEIN C DEFICIENCY - no personal history of DVT or pulmonary emboli. There is a family history of deep vein thrombosis and PEs, family history of protein C deficiency. Patient has been tested and found to have protein C deficiency. With protein C deficiency and her hip fracture she is at high risk for deep vein thrombosis. -Sequential compression devices -Start enoxaparin today BREAST CARCINOMA - status post lumpectomy and radiation therapy, currently no evidence of active disease -Continue outpatient therapy HYPOKALEMIA - improved with replacement. -potassium level in a.m. DEPRESSION/ANXIETY -Continue outpatient medical management -Lorazepam as needed for anxiety MAINTENANCE ISSUES -DVT prophylaxis; as above -GI prophylaxis; continue outpatient PPI therapy -Gupta catheter; placed for pre-, post operative management, removed yesterday -Nutrition; regular diet DISPOSITION - anticipate discharge to home versus subacute rehabilitation after the hospital stay. Rob Atkinson M.D.
[2018-08-30] MEDS: Enoxaparin 40 MG/0.4 ML Syringe SUBCUT SCH (15:34)
[2018-08-30] MEDS: Zolpidem 5 MG Tab PO SCH (21:38)
[2018-08-31] MEDS: Acetaminophen/oxyCODONE 325-5 MG Tab PO PRN ×5 (04:17→22:07)
[2018-08-31] MEDS: Enoxaparin 40 MG/0.4 ML Syringe SUBCUT SCH (08:10)
[2018-08-31] MEDS: Sertraline 50 MG Tab PO SCH (08:10)
[2018-08-31] MEDS: OMEPRAZOLE 20MG CAP (PTOM) PO SCH ×2 (08:10→16:12)
[2018-08-31] MEDS: Nozin Nasal Sanitizer NASBOTH SCH ×2 (08:10→22:08)
[2018-08-31] MEDS: ANASTROZOLE 1 MG PO SCH (08:10)
[2018-08-31] MEDS ORDERED: Potassium Chloride 20 MEQ Tab.ER PO ONE (09:00)
--- NOTE | 2018-08-31 10:53 | PCM.PN ---
- General Info Date of Service: 08/31/18 Subjective Update: There were no acute events overnight. The patient has had adequate pain control. She has been up and walking around with physical therapy and was able to ambulate approximately 180 feet. There have been no episodes of confusion. No complaints of abdominal pain or shortness of breath. No fevers. Hemoglobin stable. Multiple discussions were held with family today regarding discharge plans. At this point the plan is for her to go home to the [facility] And with physical therapy provided through home care services. Family will be preparing the cabin for her arrival tomorrow. Functional Status: Reports: Pain Controlled, Tolerating Diet, Ambulating - Review of Systems General: Denies: Fever - Patient Data Vitals - Most Recent: Last Vital Signs Temp 36.9 C 08/31/18 10:24 Pulse 89 08/31/18 10:24 Resp 18 08/31/18 10:24 BP 109/75 08/31/18 10:24 Pulse Ox 99 08/31/18 10:24 Weight - Most Recent: 63.503 kg I&O - Last 24 Hours: Intake & Output 08/30/18 08/31/18 08/31/18 22:59 06:59 14:59 Intake Total 350 480 Output Total 200 Balance 150 480 Lab Results Last 24 Hours: Laboratory Results - last 24 hr 08/31/18 08/31/18 Range/Units 05:26 05:26 WBC 3.9 L (4.5-11.0) K/uL RBC 2.42 L (3.30-5.50) M/uL Hgb 9.0 L (12.0-15.0) g/dL Hct 27.6 L (36.0-48.0) % MCV 114 H (80-98) fL MCH 37 H (27-31) pg MCHC 33 (32-36) % Plt Count 126 L (150-400) K/uL Sodium 139 L (140-148) mmol/L Potassium 3.3 L (3.6-5.2) mmol/L Chloride 105 (100-108) mmol/L Carbon Dioxide 27 (21-32) mmol/L Anion Gap 10.3 (5.0-14.0) mmol/L BUN 5 L D (7-18) mg/dL Creatinine 0.5 L (0.6-1.0) mg/dL Est Cr Clr Drug Dosing 118.95 mL/min Estimated GFR (MDRD) > 60 (>60) Glucose 95 (74-106) mg/dL Calcium 8.2 L (8.5-10.1) mg/dL Med Orders - Current: Current Medications Acetaminophen (Tylenol) 650 mg PO Q4H PRN PRN Reason: Pain (Mild 1-3)/fever Last Admin: 08/29/18 14:44 Dose: 650 mg Bandage/Support Products ( Nasal Patient Transporter) 1 applic NASBOTH BID [facility] Stop: 09/05/18 21:01 Last Admin: 08/31/18 08:10 Dose: 1 applic Diphenhydramine HCl (Benadryl) 25 mg PO Q4H PRN PRN Reason: Itching Last Admin: 08/29/18 21:37 Dose: 25 mg Enoxaparin Sodium (Lovenox) 40 mg SUBCUT DAILY [facility] Last Admin: 08/31/18 08:10 Dose: 40 mg Hydromorphone HCl (Dilaudid) 1 mg IVPUSH Q2H PRN PRN Reason: Pain Last Admin: 08/29/18 22:53 Dose: 1 mg Ibuprofen (Motrin) 600 mg PO Q6H PRN PRN Reason: Pain/Fever Last Admin: 08/30/18 19:09 Dose: 600 mg Lorazepam (Ativan) 0.5 mg PO Q4H PRN PRN Reason: Anxiety Last Admin: 08/30/18 03:48 Dose: 0.5 mg Ondansetron HCl (Zofran) 4 mg IV Q4H PRN PRN Reason: Nausea/Vomiting Last Admin: 08/28/18 18:25 Dose: 4 mg Oxycodone/Acetaminophen (Percocet 325-5 Mg) 0 tab PO Q4H PRN PRN Reason: Pain (severe 7-10) Last Admin: 08/31/18 08:18 Dose: 1 tab Omeprazole 20mg Cap ((Ptom)) 0 each PO BIDAC [facility] Last Admin: 08/31/18 08:10 Dose: 1 each Anastrolzole 1mg Tab ((Ptom)) 1 each PO DAILY [facility] Last Admin: 08/31/18 08:10 Dose: 1 each Polyethylene Glycol (Miralax) 17 gm PO DAILY PRN PRN Reason: Constipation Senna/Docusate Sodium (Senna Plus) 1 tab PO BID [facility] Last Admin: 08/31/18 08:11 Dose: 1 tab Sertraline HCl (Zoloft) 100 mg PO DAILY [facility] Last Admin: 08/31/18 08:10 Dose: 100 mg Sodium Chloride (Saline Flush) 10 ml FLUSH ASDIRECTED PRN PRN Reason: Keep Vein Open Zolpidem Tartrate (Ambien) 5 mg PO BEDTIME [facility] Last Admin: 08/30/18 21:38 Dose: 5 mg Discontinued Medications Bandage/Support Products ( Nasal Patient Transporter) 1 applic NASBOTH ONETIME ONE Stop: 08/29/18 14:21 Last Admin: 08/29/18 16:02 Dose: Not Given Ephedrine Sulfate (Ephedrine Sulfate) Confirm Administered Dose 50 mg .ROUTE .STK-MED ONE Stop: 08/29/18 12:04 Fentanyl (Sublimaze) Confirm Administered Dose 100 mcg .ROUTE .STK-MED ONE Stop: 08/29/18 08:39 Heparin Sodium (Porcine) (Heparin Sodium) 5,000 units SUBCUT Q8H [facility] Stop: 08/28/18 14:01 Last Admin: 08/28/18 18:41 Dose: 5,000 units Hydromorphone HCl (Dilaudid) 0.5 mg IVPUSH ONETIME ONE Stop: 08/28/18 10:23 Last Admin: 08/28/18 10:34 Dose: 0.5 mg Hydromorphone HCl (Dilaudid) Confirm Administered Dose 0.5 mg .ROUTE .STK-MED ONE Stop: 08/28/18 10:25 Last Admin: 08/28/18 14:47 Dose: Not Given Hydromorphone HCl (Dilaudid) 0.5 mg IVPUSH ONETIME ONE Stop: 08/28/18 11:53 Last Admin: 08/28/18 12:17 Dose: 0.5 mg Hydromorphone HCl (Dilaudid) 0.5 mg IVPUSH Q2H PRN PRN Reason: Pain Last Admin: 08/28/18 22:57 Dose: 0.5 mg Hydromorphone HCl (Dilaudid) 1 mg IVPUSH ONETIME ONE Stop: 08/29/18 09:13 Last Admin: 08/29/18 09:21 Dose: 1 mg Lactated Ringer's (Ringers, Lactated) 1,000 mls @ 125 mls/hr IV ASDIRECTED [facility] Last Admin: 08/30/18 10:38 Dose: 125 mls/hr Cefazolin Sodium/Dextrose 2 gm (/ Premix) 50 mls @ 100 mls/hr IV ONETIME ONE Stop: 08/29/18 08:44 Last Admin: 08/29/18 09:09 Dose: 100 mls/hr Lactated Ringer's (Ringers, Lactated) Confirm Administered Dose 1,000 mls @ as directed .ROUTE .STK-MED ONE Stop: 08/29/18 12:00 Cefazolin Sodium/Dextrose 1 gm (/ Premix) 50 mls @ 100 mls/hr IV Q8H [facility] Stop: 08/30/18 08:29 Last Admin: 08/30/18 07:24 Dose: 100 mls/hr Sodium Chloride (Normal Saline) 500 mls @ 500 mls/hr IV ASDIRECTED [facility] Stop: 08/29/18 17:16 Last Admin: 08/29/18 16:12 Dose: 500 mls/hr Sodium Chloride (Normal Saline) 500 mls @ 500 mls/hr IV .BOLUS ONE Stop: 08/29/18 21:47 Last Admin: 08/29/18 21:14 Dose: 500 mls/hr Midazolam HCl (Versed 1 Mg/Ml) Confirm Administered Dose 2 mg .ROUTE .STK-MED ONE Stop: 08/29/18 08:39 Pantoprazole Sodium (Protonix) 40 mg PO ACBREAKFAST [facility] Last Admin: 08/28/18 15:55 Dose: Not Given Potassium Chloride (Klor-Con M20) 40 meq PO ONETIME ONE Stop: 08/28/18 13:31 Last Admin: 08/28/18 15:51 Dose: 40 meq Potassium Chloride (Klor-Con M20) 40 meq PO ONETIME ONE Stop: 08/28/18 17:01 Last Admin: 08/28/18 19:16 Dose: 40 meq Potassium Chloride (Klor-Con M20) 40 meq PO ONETIME ONE Stop: 08/31/18 09:01 Povidone Iodine (Betadine 10% Soln) Confirm Administered Dose 1 ml .ROUTE .STK- MED ONE Stop: 08/29/18 08:23 Propofol (Diprivan 20 Ml) Confirm Administered Dose 200 mg .ROUTE .STK-MED ONE Stop: 08/29/18 08:40 - Exam Quality Assessment: No: Supplemental Oxygen General: Alert, Oriented, Cooperative, No Acute Distress Lungs: Normal Respiratory Effort GI/Abdominal Exam: Soft, No Distention Extremities: No Pedal Edema. No: Increased Warmth Wound/Incisions: Dressing Dry and Intact Psy/Mental Status: Alert, Normal Affect - Problem List Review Problem List Initiated/Reviewed/Updated: Yes - My Orders Last 24 Hours: My Active Orders 08/30/18 12:00 Convert IV to Saline Lock [OM.PC] Routine 08/30/18 12:30 Enoxaparin [Lovenox] 40 mg SUBCUT DAILY 09/01/18 05:00 BASIC METABOLIC PANEL,BMP [CHEM] Timed CBC W/O DIFF,HEMOGRAM [HEME] Timed (1) - Plan Plan:: ASSESSMENT AND PLAN RIGHT HIP FRACTURE - displaced right femoral neck fracture secondary to trauma, status post right hip arthroplasty on 08/29. Pain well-controlled at this time. Ambulating well and making steady improvements. -Orthopedic follow-up per surgical team -Saline lock IV -Pain and nausea medication as needed -Outpatient Orthopedic follow-up in 2 weeks -Physical therapy PROTEIN C DEFICIENCY - no personal history of DVT or pulmonary emboli. There is a family history of deep vein thrombosis and PEs, family history of protein C deficiency. Patient has been tested and found to have protein C deficiency. With protein C deficiency and her hip fracture she is at high risk for deep vein thrombosis. -Sequential compression devices -DVT prophylaxis dosing of enoxaparin 1 month BREAST CARCINOMA - status post lumpectomy and radiation therapy, currently no evidence of active disease -Continue outpatient therapy HYPOKALEMIA - improved with replacement initially but low again today. -Replace potassium this morning -potassium level in a.m. DEPRESSION/ANXIETY - stable at this time. -Continue outpatient medical management -Lorazepam as needed for anxiety MAINTENANCE ISSUES -DVT prophylaxis; as above -GI prophylaxis; continue outpatient PPI therapy -Gupta catheter; removed -Nutrition; regular diet DISPOSITION - anticipate discharge to home with home care tomorrow. Rob Atkinson M.D.
[2018-08-31] MEDS: Ibuprofen 600 MG Tab PO PRN (11:27)
--- NOTE | 2018-08-31 12:44 | PCM.SURGPN ---
- General Info Date of Service: 08/31/18 POD#: 2 Functional Status: Reports: Pain Controlled, Tolerating Diet, Ambulating, Urinating - Review of Systems General: Reports: No Symptoms HEENT: Reports: No Symptoms Pulmonary: Reports: No Symptoms Cardiovascular: Reports: No Symptoms Gastrointestinal: Reports: No Symptoms Genitourinary: Reports: No Symptoms Skin: Reports: No Symptoms Neurological: Reports: No Symptoms Psychiatric: Reports: No Symptoms - Patient Data Vitals - Most Recent: Last Vital Signs Temp 36.9 C 08/31/18 10:24 Pulse 89 08/31/18 10:24 Resp 18 08/31/18 10:24 BP 109/75 08/31/18 10:24 Pulse Ox 99 08/31/18 10:24 Weight - Most Recent: 63.503 kg I&O - Last 24 Hours: Intake & Output 08/30/18 08/31/18 08/31/18 22:59 06:59 14:59 Intake Total 350 480 Output Total 200 Balance 150 480 Lab Results Last 24 Hrs: Laboratory Results - last 24 hr 08/31/18 08/31/18 Range/Units 05:26 05:26 WBC 3.9 L (4.5-11.0) K/uL RBC 2.42 L (3.30-5.50) M/uL Hgb 9.0 L (12.0-15.0) g/dL Hct 27.6 L (36.0-48.0) % MCV 114 H (80-98) fL MCH 37 H (27-31) pg MCHC 33 (32-36) % Plt Count 126 L (150-400) K/uL Sodium 139 L (140-148) mmol/L Potassium 3.3 L (3.6-5.2) mmol/L Chloride 105 (100-108) mmol/L Carbon Dioxide 27 (21-32) mmol/L Anion Gap 10.3 (5.0-14.0) mmol/L BUN 5 L D (7-18) mg/dL Creatinine 0.5 L (0.6-1.0) mg/dL Est Cr Clr Drug Dosing 118.95 mL/min Estimated GFR (MDRD) > 60 (>60) Glucose 95 (74-106) mg/dL Calcium 8.2 L (8.5-10.1) mg/dL Med Orders - Current: Current Medications Acetaminophen (Tylenol) 650 mg PO Q4H PRN PRN Reason: Pain (Mild 1-3)/fever Last Admin: 08/29/18 14:44 Dose: 650 mg Bandage/Support Products ( Nasal Precision Jig Grinder) 1 applic NASBOTH BID [facility] Stop: 09/05/18 21:01 Last Admin: 08/31/18 08:10 Dose: 1 applic Diphenhydramine HCl (Benadryl) 25 mg PO Q4H PRN PRN Reason: Itching Last Admin: 08/29/18 21:37 Dose: 25 mg Enoxaparin Sodium (Lovenox) 40 mg SUBCUT DAILY [facility] Last Admin: 08/31/18 08:10 Dose: 40 mg Hydromorphone HCl (Dilaudid) 1 mg IVPUSH Q2H PRN PRN Reason: Pain Last Admin: 08/29/18 22:53 Dose: 1 mg Ibuprofen (Motrin) 600 mg PO Q6H PRN PRN Reason: Pain/Fever Last Admin: 08/31/18 11:27 Dose: 600 mg Lorazepam (Ativan) 0.5 mg PO Q4H PRN PRN Reason: Anxiety Last Admin: 08/30/18 03:48 Dose: 0.5 mg Ondansetron HCl (Zofran) 4 mg IV Q4H PRN PRN Reason: Nausea/Vomiting Last Admin: 08/28/18 18:25 Dose: 4 mg Oxycodone/Acetaminophen (Percocet 325-5 Mg) 0 tab PO Q4H PRN PRN Reason: Pain (severe 7-10) Last Admin: 08/31/18 08:18 Dose: 1 tab Omeprazole 20mg Cap ((Ptom)) 0 each PO BIDAC [facility] Last Admin: 08/31/18 08:10 Dose: 1 each Anastrolzole 1mg Tab ((Ptom)) 1 each PO DAILY [facility] Last Admin: 08/31/18 08:10 Dose: 1 each Polyethylene Glycol (Miralax) 17 gm PO DAILY PRN PRN Reason: Constipation Senna/Docusate Sodium (Senna Plus) 1 tab PO BID [facility] Last Admin: 08/31/18 08:11 Dose: 1 tab Sertraline HCl (Zoloft) 100 mg PO DAILY [facility] Last Admin: 08/31/18 08:10 Dose: 100 mg Sodium Chloride (Saline Flush) 10 ml FLUSH ASDIRECTED PRN PRN Reason: Keep Vein Open Zolpidem Tartrate (Ambien) 5 mg PO BEDTIME [facility] Last Admin: 08/30/18 21:38 Dose: 5 mg Discontinued Medications Bandage/Support Products ( Nasal Precision Jig Grinder) 1 applic NASBOTH ONETIME ONE Stop: 08/29/18 14:21 Last Admin: 08/29/18 16:02 Dose: Not Given Ephedrine Sulfate (Ephedrine Sulfate) Confirm Administered Dose 50 mg .ROUTE .STK-MED ONE Stop: 08/29/18 12:04 Fentanyl (Sublimaze) Confirm Administered Dose 100 mcg .ROUTE .STK-MED ONE Stop: 08/29/18 08:39 Heparin Sodium (Porcine) (Heparin Sodium) 5,000 units SUBCUT Q8H [facility] Stop: 08/28/18 14:01 Last Admin: 08/28/18 18:41 Dose: 5,000 units Hydromorphone HCl (Dilaudid) 0.5 mg IVPUSH ONETIME ONE Stop: 08/28/18 10:23 Last Admin: 08/28/18 10:34 Dose: 0.5 mg Hydromorphone HCl (Dilaudid) Confirm Administered Dose 0.5 mg .ROUTE .STK-MED ONE Stop: 08/28/18 10:25 Last Admin: 08/28/18 14:47 Dose: Not Given Hydromorphone HCl (Dilaudid) 0.5 mg IVPUSH ONETIME ONE Stop: 08/28/18 11:53 Last Admin: 08/28/18 12:17 Dose: 0.5 mg Hydromorphone HCl (Dilaudid) 0.5 mg IVPUSH Q2H PRN PRN Reason: Pain Last Admin: 08/28/18 22:57 Dose: 0.5 mg Hydromorphone HCl (Dilaudid) 1 mg IVPUSH ONETIME ONE Stop: 08/29/18 09:13 Last Admin: 08/29/18 09:21 Dose: 1 mg Lactated Ringer's (Ringers, Lactated) 1,000 mls @ 125 mls/hr IV ASDIRECTED [facility] Last Admin: 08/30/18 10:38 Dose: 125 mls/hr Cefazolin Sodium/Dextrose 2 gm (/ Premix) 50 mls @ 100 mls/hr IV ONETIME ONE Stop: 08/29/18 08:44 Last Admin: 08/29/18 09:09 Dose: 100 mls/hr Lactated Ringer's (Ringers, Lactated) Confirm Administered Dose 1,000 mls @ as directed .ROUTE .STK-MED ONE Stop: 08/29/18 12:00 Cefazolin Sodium/Dextrose 1 gm (/ Premix) 50 mls @ 100 mls/hr IV Q8H [facility] Stop: 08/30/18 08:29 Last Admin: 08/30/18 07:24 Dose: 100 mls/hr Sodium Chloride (Normal Saline) 500 mls @ 500 mls/hr IV ASDIRECTED [facility] Stop: 08/29/18 17:16 Last Admin: 08/29/18 16:12 Dose: 500 mls/hr Sodium Chloride (Normal Saline) 500 mls @ 500 mls/hr IV .BOLUS ONE Stop: 08/29/18 21:47 Last Admin: 08/29/18 21:14 Dose: 500 mls/hr Midazolam HCl (Versed 1 Mg/Ml) Confirm Administered Dose 2 mg .ROUTE .STK-MED ONE Stop: 08/29/18 08:39 Pantoprazole Sodium (Protonix) 40 mg PO ACBREAKFAST [facility] Last Admin: 08/28/18 15:55 Dose: Not Given Potassium Chloride (Klor-Con M20) 40 meq PO ONETIME ONE Stop: 08/28/18 13:31 Last Admin: 08/28/18 15:51 Dose: 40 meq Potassium Chloride (Klor-Con M20) 40 meq PO ONETIME ONE Stop: 08/28/18 17:01 Last Admin: 08/28/18 19:16 Dose: 40 meq Potassium Chloride (Klor-Con M20) 40 meq PO ONETIME ONE Stop: 08/31/18 09:01 Last Admin: 08/31/18 11:27 Dose: 40 meq Povidone Iodine (Betadine 10% Soln) Confirm Administered Dose 1 ml .ROUTE .STK- MED ONE Stop: 08/29/18 08:23 Propofol (Diprivan 20 Ml) Confirm Administered Dose 200 mg .ROUTE .STK-MED ONE Stop: 08/29/18 08:40 - Exam Wound/Incisions: Healing Well General: Alert, Oriented HEENT: Pupils Equal Neck: Supple Extremities: Other Skin: Warm, Dry, Intact Neurological: No New Focal Deficit Psy/Mental Status: Alert, Normal Affect, Normal Mood Physical Findings Comment:: minimal swelling right leg, no evidence of DVT, tolerating PT. - Problem List & Annotations (1) Fracture of neck of femur, hip SNOMED Code(s): 5537422 Code(s): S72.009A - FRACTURE OF UNSP PART OF NECK OF UNSP FEMUR, INIT Status: Acute Current Visit: Yes (2) S/P hip hemiarthroplasty SNOMED Code(s): 850550106, 369920860 Code(s): Z96.649 - PRESENCE OF UNSPECIFIED ARTIFICIAL HIP JOINT Status: Acute Current Visit: Yes Annotation/Comment:: bipolar hemiarthroplasty right hip - Problem List Review Problem List Initiated/Reviewed/Updated: Yes - My Orders Last 24 Hours: Active Orders 24 hr Category Date Time Status BASIC METABOLIC PANEL,BMP [CHEM] Timed Lab 09/01/18 05:00 Ordered CBC W/O DIFF,HEMOGRAM [HEME] Timed (1) Lab 09/01/18 05:00 Ordered Enoxaparin [Lovenox] Med 08/30/18 12:30 Active 40 mg SUBCUT DAILY Convert IV to Saline Lock [OM.PC] Routine Oth 08/30/18 12:00 Ordered Medication Orders Acetaminophen (Tylenol) 650 mg PO Q4H PRN PRN Reason: Pain (Mild 1-3)/fever Last Admin: 08/29/18 14:44 Dose: 650 mg Admin: 08/28/18 22:58 Dose: 650 mg Bandage/Support Products ( Nasal Precision Jig Grinder) 1 applic NASBOTH BID [facility] Stop: 09/05/18 21:01 Last Admin: 08/31/18 08:10 Dose: 1 applic Admin: 08/30/18 21:38 Dose: 1 applic Admin: 08/30/18 09:12 Dose: 1 applic Admin: 08/29/18 22:46 Dose: 1 applic Diphenhydramine HCl (Benadryl) 25 mg PO Q4H PRN PRN Reason: Itching Last Admin: 08/29/18 21:37 Dose: 25 mg Admin: 08/29/18 14:44 Dose: 25 mg Enoxaparin Sodium (Lovenox) 40 mg SUBCUT DAILY [facility] Last Admin: 08/31/18 08:10 Dose: 40 mg Admin: 08/30/18 15:34 Dose: 40 mg Hydromorphone HCl (Dilaudid) 1 mg IVPUSH Q2H PRN PRN Reason: Pain Last Admin: 08/29/18 22:53 Dose: 1 mg Admin: 08/29/18 20:15 Dose: 1 mg Admin: 08/29/18 10:26 Dose: 1 mg Admin: 08/29/18 07:57 Dose: 1 mg Admin: 08/29/18 05:59 Dose: 1 mg Admin: 08/29/18 02:01 Dose: 1 mg Ibuprofen (Motrin) 600 mg PO Q6H PRN PRN Reason: Pain/Fever Last Admin: 08/31/18 11:27 Dose: 600 mg Admin: 08/30/18 19:09 Dose: 600 mg Admin: 08/30/18 10:47 Dose: 600 mg Admin: 08/29/18 22:53 Dose: 600 mg Admin: 08/29/18 02:01 Dose: 600 mg Admin: 08/28/18 19:24 Dose: 600 mg Lorazepam (Ativan) 0.5 mg PO Q4H PRN PRN Reason: Anxiety Last Admin: 08/30/18 03:48 Dose: 0.5 mg Admin: 08/29/18 02:55 Dose: 0.5 mg Ondansetron HCl (Zofran) 4 mg IV Q4H PRN PRN Reason: Nausea/Vomiting Last Admin: 08/28/18 18:25 Dose: 4 mg Admin: 08/28/18 13:21 Dose: 4 mg Oxycodone/Acetaminophen (Percocet 325-5 Mg) 0 tab PO Q4H PRN PRN Reason: Pain (severe 7-10) Last Admin: 08/31/18 08:18 Dose: 1 tab Admin: 08/31/18 04:17 Dose: 2 tab Admin: 08/30/18 20:55 Dose: 2 tab Admin: 08/30/18 16:17 Dose: 1 tab Admin: 08/30/18 12:23 Dose: 1 tab Admin: 08/30/18 07:25 Dose: 2 tab Admin: 08/30/18 02:10 Dose: 2 tab Admin: 08/29/18 21:28 Dose: 2 tab Admin: 08/29/18 16:21 Dose: 2 tab Omeprazole 20mg Cap ((Ptom)) 0 each PO BIDAC [facility] Last Admin: 08/31/18 08:10 Dose: 1 each Admin: 08/30/18 16:13 Dose: 1 each Admin: 08/30/18 07:26 Dose: 1 each Admin: 08/29/18 18:54 Dose: 1 each Admin: 08/29/18 13:20 Dose: Admin: 08/28/18 18:42 Dose: 1 each Anastrolzole 1mg Tab ((Ptom)) 1 each PO DAILY [facility] Last Admin: 08/31/18 08:10 Dose: 1 each Admin: 08/30/18 09:12 Dose: 1 each Admin: 08/29/18 14:11 Dose: 1 each Polyethylene Glycol (Miralax) 17 gm PO DAILY PRN PRN Reason: Constipation Senna/Docusate Sodium (Senna Plus) 1 tab PO BID [facility] Last Admin: 08/31/18 08:11 Dose: 1 tab Admin: 08/30/18 21:38 Dose: 1 tab Admin: 08/30/18 09:12 Dose: 1 tab Admin: 08/29/18 21:28 Dose: 1 tab Admin: 08/29/18 13:20 Dose: Admin: 08/28/18 20:45 Dose: 1 tab Sertraline HCl (Zoloft) 100 mg PO DAILY [facility] Last Admin: 08/31/18 08:10 Dose: 100 mg Admin: 08/30/18 09:12 Dose: 100 mg Admin: 08/29/18 14:11 Dose: 100 mg Sodium Chloride (Saline Flush) 10 ml FLUSH ASDIRECTED PRN PRN Reason: Keep Vein Open Zolpidem Tartrate (Ambien) 5 mg PO BEDTIME [facility] Last Admin: 08/30/18 21:38 Dose: 5 mg Admin: 08/29/18 21:28 Dose: 5 mg Admin: 08/28/18 20:48 Dose: 5 mg - Assessment Assessment (Free Text/Narrative):: S/P hemiarthroplasty right hip, working on placement in SNF, OK to discharge/ transfer from Ortho standpoint, should follow up with Ortho either at home or here in a couple of weeks. OK to shower, light dressing to right hip as needed. Continue DVT prophylaxis for one month.
--- NOTE | 2018-08-31 18:16 | OR ---
DATE OF PROCEDURE: 08/29/2018 POSTOPERATIVE DIAGNOSIS: Displaced right femoral neck fracture. POSTOPERATIVE DIAGNOSIS: Displaced right femoral neck fracture. PROCEDURE: Hemiarthroplasty, right hip, using Jian M/L taper stem, size 12.5, with a 50 mm bipolar shell and a 28 mm head. ANESTHESIA: Spinal with sedation. INDICATIONS: Ms. Taylor is a 58-year-old female who sustained a fall resulting in a displaced fracture of her right femoral neck. She was admitted to the hospital and evaluated by the Internal Medicine Hospitalist Service and cleared for surgery. She is taken to the operating room today for hemiarthroplasty of the right hip. Risks, benefits, potential complications of the procedure including the pros and cons of hemiarthroplasty versus total hip arthroplasty were discussed. PROCEDURE IN DETAIL: After adequate anesthesia was obtained, the patient was placed in the lateral decubitus position and secured with a hip positioner. Right hip and leg were then prepped and draped in a sterile fashion. A longitudinal incision was made over the greater trochanter and carried down through the subcutaneous tissues. Hemostasis was obtained with electrocautery. The IT band and tensor fascia were then split in line with the fibers. Charnley retractor was placed. A small hematoma was present in the trochanteric bursa. This was removed and portion of the bursa excised. Short external rotators were then taken off the trochanter with electrocautery. Capsule was entered in a T-fashion. Small hemarthrosis was present in the joint. The fracture was exposed. Retractor was placed beneath the femoral neck and the femoral neck was then re-cut with an oscillating saw. The fracture fragments were removed. Femoral head was then removed from the acetabulum. This was measured to approximately 48 mm and trial femoral cups were then placed with a 50 mm cup providing the best fit. Attention was returned to the femur where a box osteotome was used to remove the lateral femoral neck cortex. A hand awl was placed down the canal. The metaphyseal reamer was used laterally. The canal was then sequentially broached to a size 12.5 M/L taper stem. The hip was irrigated and the stem was then tapped into position. Trial reductions were then done with the 50 mm cup and the 0 neck length. This appeared to recreate limb length and provided excellent tension and stability. The hip was stable at 90 degrees of flexion, approximately 20 degrees of adduction and easily 45 degrees of internal rotation. The trial was removed. The stab was irrigated once again and the bipolar cup was then assembled and the femoral head tapped onto the taper. This was reduced and the hip was again taken through range of motion, found to be very stable. It was irrigated a final time including irrigation with a dilute Betadine solution. The capsule was then closed with #1 Ethibond. Tensor fascia was also closed with #1 Ethibond in a running locking fashion. Skin was closed with 2-0 Vicryl and a running 3-0 Monocryl. Steri-Strips were applied. Sterile dressing was then placed. The patient tolerated the procedure very well. There were no complications. She was taken from the operating room in stable condition. Ahsan Laurent MD /[id number]
[2018-08-31] MEDS: Zolpidem 5 MG Tab PO SCH (22:11)
[2018-09-01] MEDS: Acetaminophen/oxyCODONE 325-5 MG Tab PO PRN ×2 (05:53→11:29)
[2018-09-01] MEDS: OMEPRAZOLE 20MG CAP (PTOM) PO SCH (07:28)
[2018-09-01] MEDS: Nozin Nasal Sanitizer NASBOTH SCH (08:13)
[2018-09-01] MEDS: Enoxaparin 40 MG/0.4 ML Syringe SUBCUT SCH (08:13)
[2018-09-01] MEDS: Sertraline 50 MG Tab PO SCH (08:13)
[2018-09-01] MEDS: ANASTROZOLE 1 MG PO SCH (08:17)
[2018-09-01] MEDS ORDERED: Potassium Chloride 20 MEQ Tab.ER PO ONE (09:30)
--- NOTE | 2018-09-01 11:58 | PCM.DCSUM1 ---
Discharge Summary - Hospital Course Brief History: 58-year-old female with history of breast cancer who presented with right hip pain after a fall at home. She was admitted for surgical management of a right femoral neck fracture with displacement. Diagnosis: Stroke: No - Discharge Data Discharge Date: 09/01/18 Discharge Disposition: Home, [facility] 06 Condition: Good - Discharge Diagnosis/Problem(s) (1) Fracture of neck of femur, hip SNOMED Code(s): 5900009 ICD Code: S72.009A - FRACTURE OF UNSP PART OF NECK OF UNSP FEMUR, INIT Status: Acute Current Visit: Yes (2) S/P hip hemiarthroplasty SNOMED Code(s): 750368834, 064628674, 903863002, 964438430 ICD Code: Z96.649 - PRESENCE OF UNSPECIFIED ARTIFICIAL HIP JOINT Status: Acute Current Visit: Yes Problem Details: bipolar hemiarthroplasty right hip (3) S/P ORIF (open reduction internal fixation) fracture SNOMED Code(s): 697974155 ICD Code: Z98.890 - OTHER SPECIFIED POSTPROCEDURAL STATES; Z87.81 - PERSONAL HISTORY OF (HEALED) TRAUMATIC FRACTURE Status: Acute Current Visit: Yes Problem Details: Bipolar (4) Protein C deficiency SNOMED Code(s): 02028364 ICD Code: D68.59 - OTHER PRIMARY THROMBOPHILIA Status: Chronic Current Visit: Yes (5) Hypokalemia SNOMED Code(s): 00006759 ICD Code: E87.6 - HYPOKALEMIA Status: Acute Current Visit: Yes (6) HX: breast cancer SNOMED Code(s): 122395491 ICD Code: Z85.3 - PERSONAL HISTORY OF MALIGNANT NEOPLASM OF BREAST Status: Chronic Current Visit: Yes - Patient Summary/Data Consults: Consultations 08/28/18 12:25 Consult to Physician [CONS] Routine Consulting Provider: Ahsan Laurent Courtesy Call Completed to Consulting Physician: Yes Reason for Consult: Right hip fracture 08/29/18 13:01 Consult to Physical Therapy [PT Evaluation and Treatment] [CONS] Routine Please Evaluate and Treat. PT Reason for Consult: Post op Ortho Surgery Pending Discharge: Yes Discharge Disposition: Home w Home Health Special Instructions: WBAT, Posterior hip precautions This query below is only for informational purposes and is not editable. Admission Diagnosis/Problem: Hip fracture requiring operative repair 08/29/18 13:02 Consult to Occupational Therapy [OT Evaluation and Treatment] [CONS] Routine Please Evaluate and Treat. OT Reason for Consult: ADL's Pending Discharge: Yes Discharge Disposition: Home w Home Health Special Instructions: ADLs and adaptive devices This query below is only for informational purposes and is not editable. Admission Diagnosis/Problem: Hip fracture requiring operative repair Hospital Course: Inez presented to the emergency room with right hip pain after falling at home. X -ray imaging in the emergency room revealed a displaced right femoral neck fracture. Patient was admitted to the hospital for surgical intervention. She had an uneventful right hemiarthroplasty the day after admission. She did have some lower blood pressures postoperatively and did require 2 boluses of IV fluids. Blood pressures have been stable since that time. Her pain has been well -controlled postoperatively and she has been progressing well with physical therapy. She is up and moving around independently. She is requiring only minimal oral pain medications at this time. She did have some mild hypokalemia which has been improving with replacement. I believe she is safe for discharge to home at this time. She is interested in home health care to provide physical therapy as well as a home health aide for assistance with bathing. She'll be discharged home with her family and home health care will be completing their admission process tomorrow. - Patient Instructions Diet: Regular Diet as Tolerated Activity: As Tolerated Activity, Other: no bathing or swimming Showering/Bathing: May Shower, No Tub Bathing/Swimming Wound/Incision Care: Keep Operative Site/Wound Site Clean and Dry, Change Dressing Daily Notify Provider of: Fever, Increased Pain, Swelling and Redness, Drainage, Nausea and/or Vomiting Other/Special Instructions: 1. You were in the hospital for management of a fracture of your right femoral neck. Your fracture required surgical repair with a hemiarthroplasty of the right hip. I would recommend acetaminophen and/ or ibuprofen for mild pain and oxycodone for moderate or severe pain. With your history of a protein C deficiency and a recent surgery you are at a high risk for blood clots. I recommend that you take rivaroxaban (Xarelto) 10 mg daily for 30 days to help reduce the risk of blood clot formation. Your first dose of this medication is due Wednesday morning. 2. Dressing change instructions - keep the surgical wound on the right hip clean and dry. You may cover this with gauze and secure with tape daily and as needed if soiled. 3. I have placed a referral to home health care. They will be providing nursing, physical therapy, occupational therapy and home health aide to help ease your transition home from the hospital. 4. Follow up with Dr Laurent in two weeks as scheduled. 5. Seek medical attention if you develop fever greater than 101, severe pain in the right hip or if you develop significant swelling, redness or warmth of the right leg. I am available for phone questions through Wednesday. You can contact me by calling [phone] and asking to speak with Dr. Atkinson. - Discharge Plan *PRESCRIPTION DRUG MONITORING PROGRAM REVIEWED*: Not Applicable *COPY OF PRESCRIPTION DRUG MONITORING REPORT IN PATIENT RANJAN: Not Applicable Prescriptions/Med Rec: oxyCODONE 5 mg PO Q4H #42 tab Rivaroxaban [Xarelto] 10 mg PO DAILY #30 tablet Home Medications: Home Meds Anastrozole [Arimidex] 1 mg PO DAILY 08/28/18 [History] LORazepam 1 mg PO TID PRN 08/28/18 [History] Omeprazole 20 mg PO BID 08/28/18 [History] Sertraline [Zoloft] 100 mg PO DAILY 08/28/18 [History] Zolpidem [Ambien] 5 mg PO QPM 08/28/18 [History] Rivaroxaban [Xarelto] 10 mg PO DAILY #30 tablet 09/01/18 [Rx] oxyCODONE 5 mg PO Q4H #42 tab 09/01/18 [Rx] Oxygen Therapy Mode: Room Air Patient Handouts: Open Reduction and Internal Fixation for Hip Fracture, Care After, Oxycodone tablets or capsules Referrals: Ahsan Laurent MD [Physician] - 09/13/18 3:15 pm (Please arrive 15 minutes early for your appointment and check in at ER desk.) - Discharge Summary/Plan Comment DC Time >30 min.: Yes (40 - coordinating home health care) - Patient Data Vitals - Most Recent: Last Vital Signs Temp 37.2 C 09/01/18 11:23 Pulse 73 09/01/18 11:23 Resp 16 09/01/18 11:23 BP 88/73 L 09/01/18 11:23 Pulse Ox 99 09/01/18 11:23 Weight - Most Recent: 63.503 kg I&O - Last 24 hours: Intake & Output 08/31/18 09/01/18 09/01/18 22:59 06:59 14:59 Intake Total 800 Output Total 200 Balance -200 800 Lab Results - Last 24 hrs: Laboratory Results - last 24 hr 09/01/18 09/01/18 Range/Units 05:40 05:40 WBC 4.3 L (4.5-11.0) K/uL RBC 2.37 L (3.30-5.50) M/uL Hgb 8.8 L (12.0-15.0) g/dL Hct 26.7 L (36.0-48.0) % MCV 113 H (80-98) fL MCH 37 H (27-31) pg MCHC 33 (32-36) % Plt Count 151 (150-400) K/uL Sodium 139 L (140-148) mmol/L Potassium 3.2 L (3.6-5.2) mmol/L Chloride 104 (100-108) mmol/L Carbon Dioxide 25 (21-32) mmol/L Anion Gap 13.2 (5.0-14.0) mmol/L BUN 7 (7-18) mg/dL Creatinine 0.5 L (0.6-1.0) mg/dL Est Cr Clr Drug Dosing 118.95 mL/min Estimated GFR (MDRD) > 60 (>60) Glucose 89 (74-106) mg/dL Calcium 8.1 L (8.5-10.1) mg/dL ADITYA Results - Last 24 hrs: Microbiology 08/31/18 14:07 Clostridioides difficile (PCR) - Final Stool / Feces - Stool, Liquid NEGATIVE CDIFF TOXIN Med Orders - Current: Current Medications Acetaminophen (Tylenol) 650 mg PO Q4H PRN PRN Reason: Pain (Mild 1-3)/fever Last Admin: 08/29/18 14:44 Dose: 650 mg Bandage/Support Products ( Nasal Mail Carrier And Clerk) 1 applic NASBOTH BID ANDRES Stop: 09/05/18 21:01 Last Admin: 09/01/18 08:13 Dose: 1 applic Diphenhydramine HCl (Benadryl) 25 mg PO Q4H PRN PRN Reason: Itching Last Admin: 08/29/18 21:37 Dose: 25 mg Enoxaparin Sodium (Lovenox) 40 mg SUBCUT DAILY [facility] Last Admin: 09/01/18 08:13 Dose: 40 mg Hydromorphone HCl (Dilaudid) 1 mg IVPUSH Q2H PRN PRN Reason: Pain Last Admin: 08/29/18 22:53 Dose: 1 mg Ibuprofen (Motrin) 600 mg PO Q6H PRN PRN Reason: Pain/Fever Last Admin: 08/31/18 11:27 Dose: 600 mg Lorazepam (Ativan) 0.5 mg PO Q4H PRN PRN Reason: Anxiety Last Admin: 08/30/18 03:48 Dose: 0.5 mg Ondansetron HCl (Zofran) 4 mg IV Q4H PRN PRN Reason: Nausea/Vomiting Last Admin: 08/28/18 18:25 Dose: 4 mg Oxycodone/Acetaminophen (Percocet 325-5 Mg) 0 tab PO Q4H PRN PRN Reason: Pain (severe 7-10) Last Admin: 09/01/18 11:29 Dose: 2 tab Omeprazole 20mg Cap ((Ptom)) 0 each PO BIDAC [facility] Last Admin: 09/01/18 07:28 Dose: 1 each Anastrolzole 1mg Tab ((Ptom)) 1 each PO DAILY [facility] Last Admin: 09/01/18 08:17 Dose: 1 each Polyethylene Glycol (Miralax) 17 gm PO DAILY PRN PRN Reason: Constipation Senna/Docusate Sodium (Senna Plus) 1 tab PO BID [facility] Last Admin: 09/01/18 08:13 Dose: 1 tab Sertraline HCl (Zoloft) 100 mg PO DAILY [facility] Last Admin: 09/01/18 08:13 Dose: 100 mg Sodium Chloride (Saline Flush) 10 ml FLUSH ASDIRECTED PRN PRN Reason: Keep Vein Open Zolpidem Tartrate (Ambien) 5 mg PO BEDTIME [facility] Last Admin: 08/31/18 22:11 Dose: 5 mg Discontinued Medications Bandage/Support Products ( Nasal Mail Carrier And Clerk) 1 applic NASBOTH ONETIME ONE Stop: 08/29/18 14:21 Last Admin: 08/29/18 16:02 Dose: Not Given Ephedrine Sulfate (Ephedrine Sulfate) Confirm Administered Dose 50 mg .ROUTE .STK-MED ONE Stop: 08/29/18 12:04 Fentanyl (Sublimaze) Confirm Administered Dose 100 mcg .ROUTE .STK-MED ONE Stop: 08/29/18 08:39 Heparin Sodium (Porcine) (Heparin Sodium) 5,000 units SUBCUT Q8H [facility] Stop: 08/28/18 14:01 Last Admin: 08/28/18 18:41 Dose: 5,000 units Hydromorphone HCl (Dilaudid) 0.5 mg IVPUSH ONETIME ONE Stop: 08/28/18 10:23 Last Admin: 08/28/18 10:34 Dose: 0.5 mg Hydromorphone HCl (Dilaudid) Confirm Administered Dose 0.5 mg .ROUTE .STK-MED ONE Stop: 08/28/18 10:25 Last Admin: 08/28/18 14:47 Dose: Not Given Hydromorphone HCl (Dilaudid) 0.5 mg IVPUSH ONETIME ONE Stop: 08/28/18 11:53 Last Admin: 08/28/18 12:17 Dose: 0.5 mg Hydromorphone HCl (Dilaudid) 0.5 mg IVPUSH Q2H PRN PRN Reason: Pain Last Admin: 08/28/18 22:57 Dose: 0.5 mg Hydromorphone HCl (Dilaudid) 1 mg IVPUSH ONETIME ONE Stop: 08/29/18 09:13 Last Admin: 08/29/18 09:21 Dose: 1 mg Lactated Ringer's (Ringers, Lactated) 1,000 mls @ 125 mls/hr IV ASDIRECTED [facility] Last Admin: 08/30/18 10:38 Dose: 125 mls/hr Cefazolin Sodium/Dextrose 2 gm (/ Premix) 50 mls @ 100 mls/hr IV ONETIME ONE Stop: 08/29/18 08:44 Last Admin: 08/29/18 09:09 Dose: 100 mls/hr Lactated Ringer's (Ringers, Lactated) Confirm Administered Dose 1,000 mls @ as directed .ROUTE .STK-MED ONE Stop: 08/29/18 12:00 Cefazolin Sodium/Dextrose 1 gm (/ Premix) 50 mls @ 100 mls/hr IV Q8H [facility] Stop: 08/30/18 08:29 Last Admin: 08/30/18 07:24 Dose: 100 mls/hr Sodium Chloride (Normal Saline) 500 mls @ 500 mls/hr IV ASDIRECTED [facility] Stop: 08/29/18 17:16 Last Admin: 08/29/18 16:12 Dose: 500 mls/hr Sodium Chloride (Normal Saline) 500 mls @ 500 mls/hr IV .BOLUS ONE Stop: 08/29/18 21:47 Last Admin: 08/29/18 21:14 Dose: 500 mls/hr Midazolam HCl (Versed 1 Mg/Ml) Confirm Administered Dose 2 mg .ROUTE .STK-MED ONE Stop: 08/29/18 08:39 Pantoprazole Sodium (Protonix) 40 mg PO ACBREAKFAST [facility] Last Admin: 08/28/18 15:55 Dose: Not Given Potassium Chloride (Klor-Con M20) 40 meq PO ONETIME ONE Stop: 08/28/18 13:31 Last Admin: 08/28/18 15:51 Dose: 40 meq Potassium Chloride (Klor-Con M20) 40 meq PO ONETIME ONE Stop: 08/28/18 17:01 Last Admin: 08/28/18 19:16 Dose: 40 meq Potassium Chloride (Klor-Con M20) 40 meq PO ONETIME ONE Stop: 08/31/18 09:01 Last Admin: 08/31/18 11:27 Dose: 40 meq Potassium Chloride (Klor-Con M20) 40 meq PO ONETIME ONE Stop: 09/01/18 09:31 Last Admin: 09/01/18 09:34 Dose: 40 meq Povidone Iodine (Betadine 10% Soln) Confirm Administered Dose 1 ml .ROUTE .STK- MED ONE Stop: 08/29/18 08:23 Propofol (Diprivan 20 Ml) Confirm Administered Dose 200 mg .ROUTE .STK-MED ONE Stop: 08/29/18 08:40 - Exam Quality Assessment: Denies: Supplemental Oxygen General: Reports: Alert, Oriented, Cooperative, No Acute Distress Lungs: Reports: Normal Respiratory Effort GI/Abdominal Exam: Soft, No Distention Extremities: No Pedal Edema Wound/Incisions: Reports: Dressing Dry and Intact Psy/Mental Status: Reports: Alert, Normal Affect
== END 2018-09-01 13:55 | disposition home health service (06) | DRG 301 ==
LOC: JP.ED 10:04 → JP.MS 11:09
PROVIDERS: ADMIT Hospitalist; ATTEND Internal Medicine
PROC: 0SRR01A Replacement of Right Hip Joint, Femoral Surface with Metal Synthetic Substitute, Uncemented, Open Approach (ICD-10-PCS; principal; 2018-08-29)
DX: S72.001A Fracture of unspecified part of neck of right femur, initial encounter for closed fracture (principal); D68.59 Other primary thrombophilia; I71.2 Thoracic aortic aneurysm, without rupture; I95.9 Hypotension, unspecified; W01.0XXA Fall on same level from slipping, tripping and stumbling without subsequent striking against object, initial encounter; E87.6 Hypokalemia; K58.0 Irritable bowel syndrome with diarrhea; F32.9 Major depressive disorder, single episode, unspecified; F41.9 Anxiety disorder, unspecified; M81.0 Age-related osteoporosis without current pathological fracture; Z85.3 Personal history of malignant neoplasm of breast; Z92.3 Personal history of irradiation; Z79.899 Other long term (current) drug therapy
CPT/HCPCS: 36415; 51702; 73501-26-RT; 73501-RT; 73502-RT; 80048; 85025; 85027; 85610; 86850; 86900; 86901; 87493; 94762; 96374; 97110-GP; 97162-GP; 97165-GO; 97530-GP; 97535-GP; 99284-25; A9270-GY; C1776; J0690; J1170; J1644; J1650; J2250; J2405; J2704; J3010; J7030; J7040; J7120